=== PATIENT | female | born 1945 | race African-American/Black ===

== ENCOUNTER 2022-08-26 21:25 | Inpatient (IN) | payer MEDICARE, OTHER ==
[~2022-08-26] VITALS: Ht 162.6 cm; Wt 81.6 kg
[2022-08-26] MEDS ORDERED: ONDANSETRON HCL 4MG/2ML INJ IV STA (21:44)
[2022-08-26] MEDS ORDERED: SODIUM CHLORIDE 0.9% 1,000 ML IV ONE (21:45)
[2022-08-26] MEDS ORDERED: MORPHINE SULFATE 4 MG/ML CPJ (NOT FOR IM USE) IV ONE (22:00)
[2022-08-26 23:05] LABS: BASOPHILS % 0.3 % (0.0-2.0); EOSINOPHILS % 0.5 % (0.0-5.0); HEMATOCRIT. 46.8 % (36.0-48.0); LYMPHOCYTES % 8.6 % (20.0-50.0); MEAN CORPUSCULAR HEMOGLOBIN 31.3 pg (28.0-32.0); MEAN CORPUSCULAR VOLUME 91.2 fL (81.0-99.0); MEAN PLATELET VOLUME 8.5 fl (7.4-10.4); MONOCYTES % 3.6 % (2.0-8.0); PLATELET 391 x1000/uL (130-400); RED BLOOD CELL COUNT 5.13 mill/uL (4.2-5.4)
[2022-08-26 23:08] LABS: PROTHROMBIN TIME 10.3 sec (9.6-11.0)
[2022-08-27] MEDS ORDERED: METOCLOPRAMIDE HCL 10MG/2ML VIAL IV ONE
[2022-08-27] MEDS ORDERED: MORPHINE SULFATE 4 MG/ML CPJ (NOT FOR IM USE) IV ONE
[2022-08-27 05:43] LABS: CHLORIDE 102 mEq/L (98-107)
[2022-08-27 08:30] VITALS: BP 122/60
[2022-08-27] MEDS ORDERED: HYDR-4009 PO (08:55)
[2022-08-27] MEDS ORDERED: ONDANSETRON HCL 4MG/2ML INJ IV PRN (10:00)
[2022-08-27] MEDS ORDERED: NALOXONE HCL 0.4MG/ML VIAL IV PRN (10:15)
[2022-08-27] MEDS: DEXT 5%/0.45% NACL 1000ML 1,000 ML IV SCH ×2 (11:03→22:20)
[2022-08-27] MEDS: ENOXAPARIN 30MG/0.3ML SYR SUBCUT SCH (11:04)
[2022-08-27] MEDS: MORPHINE SULFATE 2 MG/ML CPJ (NOT FOR IM USE) IV PRN ×3 (11:06→20:43)
[2022-08-27 12:00] VITALS: BP 132/67
[2022-08-27 16:19] VITALS: BP 168/78
[2022-08-27 20:00] VITALS: BP 149/76
[2022-08-28] VITALS (7 sets, daily range): BP systolic 116–163; BP diastolic 61–71
[2022-08-28] MEDS: DEXT 5%/0.45% NACL 1000ML 1,000 ML IV SCH ×3 (02:00→18:00)
[2022-08-28] MEDS: MORPHINE SULFATE 2 MG/ML CPJ (NOT FOR IM USE) IV PRN ×6 (02:06→23:55)
[2022-08-28 06:41] LABS: HEMATOCRIT. 38.1 % (36.0-48.0); HEMOGLOBIN. 12.8 g/dL (12.0-16.0); MEAN CORPUSCULAR HEMOGLOBIN 30.9 pg (28.0-32.0); MEAN CORPUSCULAR VOLUME 92.1 fL (81.0-99.0); MEAN PLATELET VOLUME 8.7 fl (7.4-10.4); PLATELET 273 x1000/uL (130-400); RED BLOOD CELL COUNT 4.13 mill/uL (4.2-5.4); RED CELL DISTRIBUTION WIDTH 17.4 % (11.6-14.6)
[2022-08-28 07:00] LABS: PHOSPHORUS 3.8 mg/dL (2.5-4.9); T4 FREE 1.09 ng/dL (0.76-1.46)
[2022-08-28] MEDS: PANTOPRAZOLE SODIUM 40 MG/VIAL IV SCH (10:12)
[2022-08-28] MEDS: ENOXAPARIN 30MG/0.3ML SYR SUBCUT SCH (10:12)
[2022-08-28 14:18] LABS: PLATELET ESTIMATE NORMAL
[2022-08-29] MEDS: DEXT 5%/0.45% NACL 1000ML 1,000 ML IV SCH ×3 (01:02→13:16)
[2022-08-29 04:00] VITALS: BP 139/47
[2022-08-29] MEDS: MORPHINE SULFATE 2 MG/ML CPJ (NOT FOR IM USE) IV PRN ×5 (04:10→21:04)
[2022-08-29 06:49] LABS: HEMATOCRIT. 33.8 % (36.0-48.0); HEMOGLOBIN. 11.1 g/dL (12.0-16.0); MEAN CORPUSCULAR HEMOGLOBIN 30.4 pg (28.0-32.0); MEAN CORPUSCULAR VOLUME 92.9 fL (81.0-99.0); MEAN PLATELET VOLUME 8.1 fl (7.4-10.4); PLATELET 249 x1000/uL (130-400); RED BLOOD CELL COUNT 3.64 mill/uL (4.2-5.4)
[2022-08-29 07:29] LABS: PHOSPHORUS 2.5 mg/dL (2.5-4.9)
[2022-08-29 08:00] VITALS: BP 139/68
[2022-08-29] MEDS: PANTOPRAZOLE SODIUM 40 MG/VIAL IV SCH (08:41)
[2022-08-29] MEDS: ENOXAPARIN 30MG/0.3ML SYR SUBCUT SCH (08:42)
[2022-08-29 11:49] LABS: PLATELET ESTIMATE NORMAL
[2022-08-29] MEDS: PIPERACILLIN/TAZOBACTAM 3.375 G in DEXTROSE 5% WATER 50 ML IV SCH ×2 (12:46→21:04)
[2022-08-29 13:00] VITALS: BP 127/59
[2022-08-29 16:00] VITALS: BP 156/72
[2022-08-29 20:00] VITALS: BP 153/62
[2022-08-30] VITALS: BP 148/66
[2022-08-30] MEDS: MORPHINE SULFATE 2 MG/ML CPJ (NOT FOR IM USE) IV PRN ×6 (01:01→23:27)
[2022-08-30] MEDS: DEXT 5%/0.45% NACL 1000ML 1,000 ML IV SCH ×3 (01:01→18:11)
[2022-08-30 04:00] VITALS: BP 140/69
[2022-08-30] MEDS: PIPERACILLIN/TAZOBACTAM 3.375 G in DEXTROSE 5% WATER 50 ML IV SCH ×3 (05:11→22:00)
[2022-08-30 05:54] LABS: BASOPHILS % 0.2 % (0.0-2.0); EOSINOPHILS % 2.8 % (0.0-5.0); HEMATOCRIT. 33.9 % (36.0-48.0); HEMOGLOBIN. 11.3 g/dL (12.0-16.0); LYMPHOCYTES % 19.6 % (20.0-50.0); MEAN CORPUSCULAR HEMOGLOBIN 30.6 pg (28.0-32.0); MEAN CORPUSCULAR VOLUME 91.7 fL (81.0-99.0); MEAN PLATELET VOLUME 8.3 fl (7.4-10.4); MONOCYTES % 14.4 % (2.0-8.0); PLATELET 254 x1000/uL (130-400); RED CELL DISTRIBUTION WIDTH 16.5 % (11.6-14.6)
[2022-08-30 08:00] VITALS: BP 141/53
[2022-08-30] MEDS: ENOXAPARIN 30MG/0.3ML SYR SUBCUT SCH (08:04)
[2022-08-30] MEDS: PANTOPRAZOLE SODIUM 40 MG/VIAL IV SCH (08:04)
[2022-08-30 12:00] VITALS: BP 151/60
[2022-08-30 16:00] VITALS: BP 169/71
[2022-08-30] MEDS: HYDRALAZINE 20MG/ML VIAL IV PRN (18:12)
[2022-08-30 20:00] VITALS: BP 125/65
[2022-08-31] VITALS: BP 120/43
[2022-08-31] MEDS: MORPHINE SULFATE 2 MG/ML CPJ (NOT FOR IM USE) IV PRN ×7 (01:34→21:34)
[2022-08-31] MEDS: DEXT 5%/0.45% NACL 1000ML 1,000 ML IV SCH ×3 (02:21→17:09)
[2022-08-31 04:00] VITALS: BP 117/37
[2022-08-31] MEDS: PIPERACILLIN/TAZOBACTAM 3.375 G in DEXTROSE 5% WATER 50 ML IV SCH ×4 (06:38→21:35)
[2022-08-31 08:00] VITALS: BP 152/57
[2022-08-31] MEDS: PANTOPRAZOLE SODIUM 40 MG/VIAL IV SCH (08:14)
[2022-08-31] MEDS: ENOXAPARIN 30MG/0.3ML SYR SUBCUT SCH (08:14)
[2022-08-31] MEDS ORDERED: DIATR MEGLU/DIATRIZOATE SOLN 30ML NG NR (10:00)
[2022-08-31 12:00] VITALS: BP 147/59
[2022-08-31] MEDS ORDERED: DIATR MEGLU/DIATRIZOATE SOLN 120ML ONE (13:30)
[2022-08-31 16:00] VITALS: BP 176/84
[2022-08-31] MEDS: HYDRALAZINE 20MG/ML VIAL IV PRN (16:54)
[2022-08-31 20:00] VITALS: BP 122/59
[2022-09-01] VITALS: BP 128/63
[2022-09-01] MEDS: DEXT 5%/0.45% NACL 1000ML 1,000 ML IV SCH (03:50)
[2022-09-01 04:00] VITALS: BP 128/67
[2022-09-01] MEDS: PIPERACILLIN/TAZOBACTAM 3.375 G in DEXTROSE 5% WATER 50 ML IV SCH (05:36)
[2022-09-01 08:00] VITALS: BP 133/80
[2022-09-01] MEDS: PANTOPRAZOLE SODIUM 40 MG/VIAL IV SCH (09:04)
[2022-09-01] MEDS: ENOXAPARIN 30MG/0.3ML SYR SUBCUT SCH (09:04)
[2022-09-01] MEDS: MORPHINE SULFATE 2 MG/ML CPJ (NOT FOR IM USE) IV PRN (09:08)
[2022-09-01 12:00] VITALS: BP 126/52
[2022-09-01 13:40] VITALS: BP 126/52
== END 2022-09-01 14:32 | disposition home or self-care (01) | DRG 388 ==
LOC: ER 21:25 → 8WST 08-27 04:25 → ENRESERV 08-27 06:47
PROVIDERS: ADMIT Internal Medicine; ATTEND Internal Medicine
PROC: 0D9670Z Drainage of Stomach with Drainage Device, Via Natural or Artificial Opening (ICD-10-PCS; principal; 2022-08-27)
DX: K56.600 Partial intestinal obstruction, unspecified as to cause (principal); N17.0 Acute kidney failure with tubular necrosis; I12.9 Hypertensive chronic kidney disease with stage 1 through stage 4 chronic kidney disease, or unspecified chronic kidney disease; N18.9 Chronic kidney disease, unspecified; E78.00 Pure hypercholesterolemia, unspecified; Z88.6 Allergy status to analgesic agent; Z90.710 Acquired absence of both cervix and uterus; Z85.3 Personal history of malignant neoplasm of breast; Z88.8 Allergy status to other drugs, medicaments and biological substances
CPT/HCPCS: 36415; 71045; 74018; 74176; 74250; 80048; 80053; 80061; 80076; 83735; 84100; 84439; 84443; 84484; 85025; 86850; 86900; 93005; 93970; 99285; C1893; C9113; G0378; J0360; J1650; J2270; J2405; J2543; J2765; J7030; J7060; Q9963

== ENCOUNTER 2022-11-14 08:36 | Emergency (ER) | payer BC, MEDICAID ==
[~2022-11-14] VITALS: Ht 172.7 cm; Wt 68.0 kg
[2022-11-14 08:58] VITALS: BP 126/45; PULSE 58; RESP 20; TEMP 98.3; O2SAT 99
== END 2022-11-14 09:17 | disposition home or self-care (01) ==
LOC: ER 09:01
DX: M25.562 Pain in left knee (principal); I10 Essential (primary) hypertension; E78.00 Pure hypercholesterolemia, unspecified; Z88.5 Allergy status to narcotic agent; Z88.6 Allergy status to analgesic agent; Z88.9 Allergy status to unspecified drugs, medicaments and biological substances
CPT/HCPCS: 99281